=== PATIENT | female | born 1980 | race Caucasian/White ===

== ENCOUNTER 2020-09-13 15:38 | Day surgery (SDC) | payer BC ==
[2020-09-13] MEDS ORDERED: Adderall 20 MG20 MG PO (16:23)
[2020-09-13] MEDS ORDERED: ESCI20 PO (16:24)
[2020-09-13] MEDS ORDERED: Amitriptyline H10 MG PO (16:25)
== END 2020-09-13 16:10 | disposition home or self-care (01) ==
LOC: ATC 15:38
DX: Z11.1 Encounter for screening for respiratory tuberculosis (principal); F90.9 Attention-deficit hyperactivity disorder, unspecified type; F17.290 Nicotine dependence, other tobacco product, uncomplicated; Z91.013 Allergy to seafood
CPT/HCPCS: 86580